=== PATIENT | female | born 1985 | race Caucasian/White ===

== ENCOUNTER 2022-07-14 23:24 | Emergency (ER) | payer BC ==
[~2022-07-14] VITALS: Ht 170.2 cm; Wt 72.6 kg
[2022-07-15] MEDS ORDERED: OXYCODONE/APAP 5-325 MG TABLET PO ONE (00:30)
[2022-07-15 00:52] LABS: *BILIRUBIN,URIN NEGATIVE (NEGATIVE); *BLOOD, URINE 2+ (NEGATIVE); *CLARITY,URINE CLEAR (CLEAR); *COLOR,URINE YELLOW (YELLOW); *KETONES,URINE 1+ (NEGATIVE); *UROBILINOGEN,URINE 0.2 E.U./dl (NORMAL); LEUKOCYTE ESTERASE ,URINE NEGATIVE (NEGATIVE); NITRITE, URINE NEGATIVE (NEGATIVE); UGLUCOSE NEGATIVE (NEGATIVE)
[2022-07-15 00:53] LABS: CARBON DIOXIDE 25 mmol/L (21-32); CHLORIDE 100 mmol/L (98-107); CREATININE 0.9 mg/dL (0.6-1.3); GLUCOSE 130 mg/dL (74-106); POTASSIUM 3.5 mmol/L (3.5-5.1); UREA NITROGEN, BLOOD 9 mg/dL (7-18)
[2022-07-15 00:55] LABS: HEMATOCRIT 36.2 % (31.2-41.9); MEAN CORPUSCULAR HEMOGLOBIN 31.9 uug (24.7-32.8); PLATELET COUNT (AUTO) 324 K/uL (179-408)
[2022-07-15] MEDS ORDERED: OXYCODONE/APAP 5-325 MG TABLET ONE (00:56)
[2022-07-15 00:58] LABS: ALANINE AMINOTRANSFERASE 22 U/L (14-59); ALKALINE PHOSPHATASE 76 U/L (50-136); ASPARTATE AMINOTRANSFERASE 13 U/L (15-37); BILIRUBIN,DIRECT < 0.1 mg/dL (0.0-0.2); BILIRUBIN,TOTAL 0.2 mg/dL (0.2-1.0); TOTAL PROTEIN, SERUM 7.3 g/dL (6.4-8.2)
[2022-07-15 01:10] LABS: *MONOTEST POSITIVE (NEGATIVE)
[2022-07-15 01:18] LABS: BACTERIA,URINE NONE SEEN /HPF (NONE SEEN); SQUAMOUS EPITHELIAL CELL,UR FEW /HPF (NONE SEEN); WBC,URINE NONE SEEN /HPF (0-3)
[2022-07-15] MEDS ORDERED: HYDR-3972 PO (01:41)
--- NOTE | 2022-07-15 02:23 | NUR ---
Patient is discharged home. Discharged instructions given, patient verbalized understanding. Ambulates off unit in no distress.
[2022-07-15 02:25] VITALS: BP 102/77
== END 2022-07-15 02:26 | disposition home or self-care (01) ==
LOC: ER 23:24
DX: B27.90 Infectious mononucleosis, unspecified without complication (principal)
CPT/HCPCS: 36415; 85025; 86308